=== PATIENT | male | born 1965 | race Caucasian/White ===

== ENCOUNTER 2018-03-23 15:26 | Inpatient (IN) | payer OTHER, SELFPAY ==
[2018-03-23 15:27] VITALS: BMI 27.3
[2018-03-23 15:39] VITALS: O2SAT 99
[2018-03-23 16:42] LABS: BASO # 0.1 K/uL (0.0-0.2); BASO % 0.7 % (0.0-2.0); EOS # 0.1 K/uL (0.0-0.7); EOS % 1.3 % (0.0-4.0); HEMOGLOBIN 16.4 g/dL (12.0-18.0); LYMPH # 1.8 K/uL (1.0-4.3); LYMPH % 17.2 % (20.0-40.0); MEAN CELL VOLUME 88.1 fl (80.0-94.0); MEAN CORPUSCULAR HEMOGLOBIN 29.8 pg (27.0-31.0); MEAN CORPUSCULAR HGB CONC 33.8 g/dL (33.0-37.0); MEAN PLATELET VOLUME 8.8 fl (7.2-11.7); MONO # 0.8 K/uL (0.0-0.8); MONO % 8.1 % (0.0-10.0); NEUT # 7.5 K/uL (1.8-7.0); NEUT % 72.7 % (50.0-75.0); NRBC % 0.1 % (0.0-0.0); RBC 5.51 Mil/uL (4.40-5.90); RED CELL DISTRIBUTION WIDTH 13.5 % (11.5-14.5); WHITE BLOOD COUNT 10.3 K/uL (4.8-10.8)
[2018-03-23 16:43] LABS: URINE BILIRUBIN NEGATIVE (NEGATIVE); URINE BLOOD NEGATIVE (NEGATIVE); URINE CLARITY CLEAR (Clear); URINE COLOR YELLOW (YELLOW); URINE GLUCOSE (UA) NEG (Normal); URINE LEUKOCYTE ESTERASE NEG Leu/uL (Negative); URINE PROTEIN NEGATIVE (NEGATIVE)
[2018-03-23 16:50] LABS: ALB/GLOB RATIO 1.4 (1.0-2.1); ALBUMIN 4.3 g/dL (3.5-5.0); ALT/SGPT 37 U/L (21-72); AST/SGOT 19 U/L (17-59); BLOOD UREA NITROGEN 15 mg/dl (9-20); CALCIUM 9.3 mg/dL (8.4-10.2); GFR AFRICAN-AMERICAN > 60; GFR NON-AFRICAN AMERICAN > 60
[2018-03-23 17:00] LABS: BARBITURATES, UR NEGATIVE (NEGATIVE); BENZODIAZEPINES, UR NEGATIVE (NEGATIVE); OPIATES, UR NEGATIVE (NEGATIVE); PHENCYCLIDINE, UR NEGATIVE (NEGATIVE)
--- NOTE | 2018-03-23 17:37 | RAD ---
PROCEDURE: CHEST RADIOGRAPH, 1 VIEW HISTORY: psych eval COMPARISON: None available. FINDINGS: LUNGS: The lungs are well inflated. There is mild pulmonary venous congestion. No focal consolidation. PLEURA: No pneumothorax or pleural fluid seen. CARDIOVASCULAR: Normal. OSSEOUS STRUCTURES: No significant abnormalities. VISUALIZED UPPER ABDOMEN: Normal. OTHER FINDINGS: None. IMPRESSION: No active pulmonary disease.
--- NOTE | 2018-03-23 17:49 | ED PDOC ---
HPI: Psych/Substance Abuse Time Seen by Provider: 03/23/18 15:45 Chief Complaint (Nursing): Psychiatric Evaluation Chief Complaint (Provider): Psychiatric Evaluation History/Exam Limitations: no limitations Onset/Duration Of Symptoms: Other (3 weeks) Current Symptoms Are (Timing): Still Present Associated Symptoms: Depression Additional Complaint(s): 52 year old male presents to the ED for psychiatric evaluation for depression that began 3 weeks ago. Patient reports the following associated symptoms of not eating or sleeping and states "FBI is calling him". Other psychiatric symptoms: (+) paranoid thoughts, (+) hallucinations, (-) suicidal ideation, (-) homicidal ideation. Otherwise: (-) trauma, (-) fever, (-)headache, (-) dyspnea, (-) vomiting, (-) substance abuse, (-) patient intent of initiating a suicide attempt, (-) plan. Past Medical History Reviewed: Historical Data, Nursing Documentation, Vital Signs Vital Signs: Last Vital Signs Temp 98.4 F 03/23/18 15:36 Pulse 84 03/23/18 15:36 Resp 18 03/23/18 15:36 BP 165/93 H 03/23/18 15:36 Pulse Ox 99 03/23/18 15:36 - Medical History PMH: Anxiety, Asthma, Depression, HTN Denies: Chronic Kidney Disease - Family History Family History: States: Unknown Family Hx - Social History Current smoker - smoking cessation education provided: No Alcohol: Occasional Drugs: Denies - Immunization History Hx Tetanus Toxoid Vaccination: No Hx Influenza Vaccination: No Hx Pneumococcal Vaccination: No - Home Medications Home Medications: Ambulatory Orders Medication Instructions Recorded Albuterol 0.083% [Albuterol 0.083% 2.5 mg IH Q6 PRN #20 neb 04/07/17 Inhal [place] (2.5 mg/3 ml) UD] - Allergies Allergies/Adverse Reactions: Allergies Allergy/AdvReac Type Severity Reaction Status Date / Time No Known Allergies Allergy Verified 04/07/17 08:02 Review of Systems ROS Statement: Except As Marked, All Systems Reviewed And Found Negative Constitutional: Negative for: Fever, Other (trauma) Respiratory: Negative for: Other (difficulty breathing) Gastrointestinal: Negative for: Vomiting Neurological: Positive for: Other (paranoid thoughts; hallucinations). Negative for: Headache Psych: Negative for: Suicidal ideation (homicidal ideation) Physical Exam - Physical Exam Comments: GENERAL APPEARANCE: Patient is awake, alert, oriented x 3, in no acute distress. SKIN: Warm, dry; (-) cyanosis HEAD: (-) scalp swelling, (-) scalp tenderness. EYES: (-) conjunctival pallor, (-) scleral icterus, (-) nystagmus. ENMT: Mucous membranes moist. Airway patent: (-) stridor. NECK: (-) tenderness, (-) stiffness, (-) lymphadenopathy. CHEST AND RESPIRATORY: (-) rales, (-) rhonchi, (-) wheezes; breath sounds equal. ABDOMEN: Soft, (-) distention, (-) tenderness, (-) guarding. NEURO AND PSYCH: Mental status as above. Affect: Calm and cooperative. operation manager: Intact. Pupils equal and reactive; EOMI; (-) facial asymmetry; tongue and uvula midline. Strength symmetric. - Laboratory Results Result Diagrams: 03/23/18 16:20 03/23/18 16:20 - ECG O2 Sat by Pulse Oximetry: 99 (RA) Pulse Ox Interpretation: Normal Medical Decision Making Medical Decision Making: Time: 1616 Initial Plan: --EKG --Alcohol serum --CMP --Drug screen --Crisis evaluation --CBC w/ differential --Chest one view --Urinalysis --Reevaluation Time: 1734 PROCEDURE: CHEST RADIOGRAPH, 1 VIEW FINDINGS: LUNGS: The lungs are well inflated. There is mild pulmonary venous congestion. No focal consolidation. PLEURA: No pneumothorax or pleural fluid seen. CARDIOVASCULAR: Normal. OSSEOUS STRUCTURES: No significant abnormalities. VISUALIZED UPPER ABDOMEN: Normal. OTHER FINDINGS: None. IMPRESSION: No active pulmonary disease. EKG: NSR at 76 bpm, (-) acute ST changes, as read by REDDY. Labs reviewed and they are noted to be within normal limits. Patient is medically cleared for crisis evaluation. Patient was seen and evaluated by crisis. After crisis evaluation, disposition was made for further inpatient treatment as per Dr. Ruiz for depression and hallucinations. Patient and family is agreeable with plan and disposition. On re-evaluation, patient laying in bed comfortably in no acute distress. Scribe Attestation: Documented by Tiffany Jiménez, acting as a scribe for Anita Olsen PA-C Provider Scribe Attestation: All medical record entries made by the Scribe were at my direction and personally dictated by me. I have reviewed the chart and agree that the record accurately reflects my personal performance of the history, physical exam, medical decision making, and the department course for this patient. I have also personally directed, reviewed, and agree with the discharge instructions and disposition. Disposition - Clinical Impression Clinical Impression: Depression, Hallucination - Patient ED Disposition Is Patient to be Admitted: Yes Counseled Patient/Family Regarding: Studies Performed, Diagnosis - Disposition Disposition Time: 18:00 Condition: STABLE Forms: qualifyor ([employer]) - PA / MECHANICAL HANDYMAN / Resident Statement / has reviewed & agrees with the documentation as recorded.
[2018-03-23] MEDS ORDERED: Magnesium Hydroxide Susp 30 ml UD PO PRN (20:50)
[2018-03-23] MEDS ORDERED: DiphenhydrAMINE 50 mg/ml Inj IM PRN (20:50)
[2018-03-23] MEDS ORDERED: Alum-Mag Hydrox-Simethicone Susp (30 mL) PO PRN (20:50)
[2018-03-23] MEDS ORDERED: Albuterol 0.083% Inhal Sol (2.5 mg/3 mL) UD IH PRN (21:10)
--- NOTE | 2018-03-23 21:52 | PCM.BM ---
<AlievenusRaghavendraabigail P - Last Filed: 03/23/18 21:51> Treatment Plan Problems - Problems identified on initial assessmt Hopelessness/Helplessness Date Initiated: 03/23/18 Time Initiated: 21:51 Assessment reference: NA Status: Active Altered Sleep Patterns Date Initiated: 03/23/18 Time Initiated: 21:51 Assessment reference: NA Status: Active Treatment assets and liabiliti Patient Assests: physically healthy, good support system, negotiates basic needs , cognitively intact Patient Liabilities: relationship conflicts, language/speech - Milieu Protocol Maintain good personal hygiene: daily Encourage regular showers, daily Remind patient to perform daily oral care, daily Assist patient to perform ADL's Conduct patient checks and document Observation sheet: Q15 minutes Maintain personal safety: every shift Educate patient to report safety concerns to staff, every shift Monitor environment for contraband/sharps Medication safety: Monitor for expected outcome, potential side effects: every shift, Assess barriers to learning: every shift, Assess readiness for medication education: every shift <EstelaVictorina dorman - Last Filed: 03/27/18 16:14> Treatment assets and liabiliti Patient Assests: adapts well, cooperative, insightful (limited ; noncompliant with aftercare), motivated, resourceful, ADL independent, physically healthy, good support system, negotiates basic needs, good past tx response, cognitively intact Patient Liabilities: language/speech (primarily surinamese speaking) Family Contact Family involvement: Family/SO is involved Family contact: Patient agrees to contact, Family has been contacted by patient , Telephone contact initiated by staff Family contact name: Dayana ([phone]) Family contacted how many times per week?: 2 Family contact comment: Gate Clerk placed call to patients /primary support to discuss progress on 3NP, discharge planning and address faily concerns. Voicemail for this number guevara snot been set up and card writer hand was unable to leave voicemail. Gate Clerk will attempt call at later time. - Goals for Treatment Patient goals for treatment: Patient to continue stabilization on 3NP through medication management and group/supportive therapy. Patient to be encouraged to attend groups regularly to promote self-awareness, reality testing, and improve insight, compliance, coping skills and self-esteem. Patient to be provided with referral for appropriate level of aftercare to reduce risk of future hospitalizations and ensure safety in the community. Discharge/Continuing Care - Education Needs Education Needs: Family Medication, Family Diagnosis/Disease Process, Family Coping Skills, Family Community resources, Family Aftercare Safety Plan, Patient Medication, Patient Diagnosis/Disease Process, Patient Coping Skills, Patient Community resources, Patient Aftercare Safety Plan - Discharge Discharge Criteria: Tolerates medication w/o severe side effects, Free of paranoid thoughts, Free of agitation, Normal sleep pattern, Ability to care for self, Reduction of target symptoms Discharge to:: Home, With Family - Treatment Team Participation Patient/Family/SO Statement: 03/27/18 16:18 Pt. remains internally preoccupied and suspicious on approach but to a lesser degree than upon admission. Pt. brighter and more visible on 3NP. Insight and focused are limited. Pt. continues to express paranoia and delusions pertaining to the FBI. Pt. mostly withdrawn and isolative on 3NP but to a lesser degree than upon admission. Pt. reported some improvement in symptoms of depression and anxiety since admission. Pt reports improvement in sleep. Discussed with Family/SO: No Was Patient/Family/SO present at Treatment Team Meeting: Yes <Audie Goetz - Last Filed: 03/28/18 14:09> - Diagnosis (1) Depression Status: Acute Interventions: 03/28/18 14:08 pharmacotherapy, psychotherapy
[2018-03-24 10:58] LABS: T4 9.65 ug/dl (5.5-11.0)
--- NOTE | 2018-03-24 12:49 | CP.PCM.CON ---
History of Present Illness - History of Present Illness History of Present Illness: This is a 52 yo male with a past medical history of asthma, hypertension, anxiety, and depression, who presented to the ED with worsening depression, paranoid thoughts, hallucinations. The patient is very withdrawn and does not respond to questioning. Has not been taking any medication for his hypertension. Review of Systems - Review of Systems Systems not reviewed;Unavailable: Uncooperative Past Patient History - Infectious Disease Hx of Infectious Diseases: None - Tetanus Immunizations Tetanus Immunization: Unknown - Past Medical History & Family History Past Medical History?: Yes - Past Social History Alcohol: Occasional Drugs: Denies - CARDIAC Hx Cardiac Disorders: No - PULMONARY Hx Respiratory Disorders: Yes Hx Asthma: Yes - NEUROLOGICAL Hx Neurological Disorder: No - HEENT Hx HEENT Problems: No - RENAL Hx Chronic Kidney Disease: No - ENDOCRINE/METABOLIC Hx Endocrine Disorders: No - HEMATOLOGICAL/ONCOLOGICAL Hx Blood Disorders: No - INTEGUMENTARY Hx Dermatological Problems: No - MUSCULOSKELETAL/RHEUMATOLOGICAL Hx Musculoskeletal Disorders: No Hx Falls: No - GASTROINTESTINAL Hx Gastrointestinal Disorders: No - GENITOURINARY/GYNECOLOGICAL Hx Genitourinary Disorders: No - PSYCHIATRIC Hx Substance Use: No - SURGICAL HISTORY Hx Surgeries: No - ANESTHESIA Hx Anesthesia: No Meds Allergies/Adverse Reactions: Allergies Allergy/AdvReac Type Severity Reaction Status Date / Time No Known Allergies Allergy Verified 04/07/17 08:02 - Medications Medications: Current Medications Acetaminophen (Tylenol 325mg Tab) 650 mg PO Q4 PRN PRN Reason: pain level 4-7 Al Hydrox/Mg Hydrox/Simethicone (Maalox Plus 30 Ml) 30 ml PO Q4 PRN PRN Reason: Dyspepsia Albuterol Sulfate (Albuterol 0.083% Inhal [place] (2.5 Mg/3 Ml) Ud) 2.5 mg IH RQ6 PRN PRN Reason: Wheezing Diphenhydramine HCl (Benadryl) 50 mg IM Q6 PRN PRN Reason: Extrapyramidal S/S Unable PO Diphenhydramine HCl (Benadryl) 50 mg PO Q6 PRN PRN Reason: Extrapyramidal Symptoms Diphenhydramine HCl (Benadryl) 50 mg PO HS PRN PRN Reason: Sleep Haloperidol (Haldol) 5 mg PO Q4 PRN PRN Reason: Agitation Haloperidol Lactate (Haldol) 5 mg IM Q4 PRN PRN Reason: Agitation, Unable to Take PO Hydrochlorothiazide (Hydrodiuril) 25 mg PO DAILY ROX Lorazepam (Ativan) 2 mg IM Q4 PRN PRN Reason: Anxiety/Agitation,Unable PO Lorazepam (Ativan) 2 mg PO Q4 PRN PRN Reason: Anxiety/Agitation Magnesium Hydroxide (Milk Of Magnesia) 30 ml PO HS PRN PRN Reason: Constipation Physical Exam - Additional Findings Additional findings: Physical exam: Constitutional- not responding to questioning due to psychiatric disorder, awake , alert Head- NCAT, PERRL Eye- PERRL, EOMI ENT- normal exam, MMM. Neck- normal inspection, supple, no JVD Respiratory- CTAB, no wheezes rales rhonchi Cardiovascular- RRR, +S1, +S2 no MRG GI/Abdominal- normal bowel sounds, soft, no mass, no hsm Skin- warm, dry Extremities Exam- normal capillary refill, normal inspection Neurological Exam- alert, awake, oriented Psych- depressed mood, flat affect Results - Vital Signs Recent Vital Signs: Last Vital Signs Temp 98.1 F 03/23/18 20:48 Pulse 74 03/23/18 21:22 Resp 18 03/23/18 21:22 BP 138/75 03/23/18 20:48 Pulse Ox 99 03/23/18 20:48 - Labs Result Diagrams: 03/23/18 16:20 03/23/18 16:20 Labs: Laboratory Results - last 24 hr 03/23/18 03/23/18 03/23/18 16:20 16:20 16:20 WBC 10.3 RBC 5.51 Hgb 16.4 Hct 48.6 MCV 88.1 MCH 29.8 MCHC 33.8 RDW 13.5 Plt Count 252 MPV 8.8 Neut % (Auto) 72.7 Lymph % (Auto) 17.2 L [place] % (Auto) 8.1 Eos % (Auto) 1.3 Baso % (Auto) 0.7 Neut # (Auto) 7.5 H Lymph # (Auto) 1.8 [place] # (Auto) 0.8 Eos # (Auto) 0.1 Baso # (Auto) 0.1 Sodium 142 Potassium 3.8 Chloride 98 Carbon Dioxide 25 Anion Gap 23 H BUN 15 Creatinine 0.8 Est GFR ( Amer) > 60 Est GFR (Non-Af Amer) > 60 Random Glucose 113 H Calcium 9.3 Total Bilirubin 0.5 AST 19 ALT 37 Alkaline Phosphatase 67 Total Protein 7.4 Albumin 4.3 Globulin 3.1 Albumin/Globulin Ratio 1.4 Triglycerides Cholesterol LDL Cholesterol Direct HDL Cholesterol Thyroxine (T4) TSH 3rd Generation Urine Color Urine Clarity Urine pH Ur Specific [place] Urine Protein Urine Glucose (UA) Urine Ketones Urine Blood Urine Nitrate Urine Bilirubin Urine Urobilinogen Ur Leukocyte Esterase Urine RBC (Auto) Urine Microscopic WBC Urine Opiates Screen Negative Urine Methadone Screen Negative Ur Barbiturates Screen Negative Ur Phencyclidine Scrn Negative Ur Amphetamines Screen Negative U Benzodiazepines Scrn Negative U Oth Cocaine Metabols Negative U Cannabinoids Screen Negative Alcohol, Quantitative < 10 03/23/18 03/24/18 16:20 09:40 WBC RBC Hgb Hct MCV MCH MCHC RDW Plt Count MPV Neut % (Auto) Lymph % (Auto) [place] % (Auto) Eos % (Auto) Baso % (Auto) Neut # (Auto) Lymph # (Auto) [place] # (Auto) Eos # (Auto) Baso # (Auto) Sodium Potassium Chloride Carbon Dioxide Anion Gap BUN Creatinine Est GFR ( Amer) Est GFR (Non-Af Amer) Random Glucose Calcium Total Bilirubin AST ALT Alkaline Phosphatase Total Protein Albumin Globulin Albumin/Globulin Ratio Triglycerides 137 Cholesterol 212 H LDL Cholesterol Direct 140 H HDL Cholesterol 46 Thyroxine (T4) 9.65 TSH 3rd Generation 0.46 Urine Color Yellow Urine Clarity Clear Urine pH 6.0 Ur Specific [place] 1.015 Urine Protein Negative Urine Glucose (UA) Neg Urine Ketones Negative Urine Blood Negative Urine Nitrate Negative Urine Bilirubin Negative Urine Urobilinogen 2.0 Ur Leukocyte Esterase Neg Urine RBC (Auto) 3 Urine Microscopic WBC < 1 Urine Opiates Screen Urine Methadone Screen Ur Barbiturates Screen Ur Phencyclidine Scrn Ur Amphetamines Screen U Benzodiazepines Scrn U Oth Cocaine Metabols U Cannabinoids Screen Alcohol, Quantitative Assessment & Plan - Assessment and Plan (Free Text) Plan: ASSESSMENT/PLAN 1) Essential hypertension, uncontrolled - no seen antihypertensive medication in the past in the chart - Start HCTZ 25 mg po daily and titrate as necessary - also may be exacerbated by anxiety 2) Asthma- chronic, stable - Continue Ventolin inhaler PRN - well controlled 3) Anxiety/depression - Management as per psychiatry
--- NOTE | 2018-03-24 14:50 | PCM.PSYCH ---
Initial Psychiatric Evaluation - Initial Psychiatric Evaluation Chief Complaint (in patient's own words): came to emergency room with for worsening depression and anxiety with paranoia Patient's Reaction to Hospitalization: pt signed in voluntarily History of Present Illness and Precipitating Events: several weeks ago increasing depression anxiety paranoia after reportedly receiving call from fbi related to reported call pt made to a telephone hotline for exotic women. after reported call pt became increasingly worried not want to leave house thinking people were following him, feeling down, not wantting to eat. reports that expresses concern that although does not have patience suicidal plan is concerned about his worsening mood as was reported to er staff by per report. pt was previously treated at [facility] for depression and anxiety. reportedly was given medications, felt better and stopped on his own after a period of working and having fears of "becoming addicted to medications". Current Medications: Active Medications Generic Name Dose Route Start Last Admin Trade Name Freq PRN Reason Stop Dose Admin Acetaminophen 650 mg 03/23/18 20:50 Tylenol 325mg Tab PO Q4 PRN pain level 4-7 Al Hydrox/Mg Hydrox/Simethicone 30 ml 03/23/18 20:50 Maalox Plus 30 Ml PO Q4 PRN Dyspepsia Albuterol Sulfate 2.5 mg 03/23/18 21:10 Albuterol 0.083% Inhal [place] (2.5 Mg/3 Ml) Ud IH RQ6 PRN Wheezing Diphenhydramine HCl 50 mg 03/23/18 20:50 Benadryl IM Q6 PRN Extrapyramidal S/S Unable PO Diphenhydramine HCl 50 mg 03/23/18 20:50 Benadryl PO Q6 PRN Extrapyramidal Symptoms Diphenhydramine HCl 50 mg 03/23/18 20:54 Benadryl PO HS PRN Sleep Escitalopram Oxalate 5 mg 03/24/18 14:45 Lexapro PO DAILY ROX Haloperidol 5 mg 03/23/18 20:50 Haldol PO Q4 PRN Agitation Haloperidol Lactate 5 mg 03/23/18 20:50 Haldol IM Q4 PRN Agitation, Unable to Take PO Hydrochlorothiazide 25 mg 03/24/18 12:30 Hydrodiuril PO DAILY ROX Lorazepam 2 mg 03/23/18 20:50 Ativan IM Q4 PRN Anxiety/Agitation,Unable PO Lorazepam 2 mg 03/23/18 20:50 Ativan PO Q4 PRN Anxiety/Agitation Magnesium Hydroxide 30 ml 03/23/18 20:50 Milk Of Magnesia PO HS PRN Constipation Quetiapine Fumarate 25 mg 03/24/18 22:00 Seroquel PO HS ROX Past Psychiatric History - Past Psychiatric History Prior Professional Help: opd [facility] depression anxietty Prior Psychiatric Treatment: stopped on his own without follow up History of Abuse: denies History of ETOH/Drug Use: denies History of Family Illness: denies Pertinent Medical Hx (Current Medical&Sleep Prob, Allergies): Allergies Allergy/AdvReac Type Severity Reaction Status Date / Time No Known Allergies Allergy Verified 04/07/17 08:02 Albuterol 0.083% [Albuterol 0.083% Inhal [place] (2.5 mg/3 ml) UD] 2.5 mg IH Q6 PRN #20 neb 04/07/17 Review of Systems - Psychiatric Psychiatric: Abnormal Sleep Pattern, Anhedonia, Change in Appetite, Hopelessness , Paranoia Mental Status Examination - Personal Presentation Personal Presentation: Looks older than stated age - Affect Affect: Constricted, Depressed - Motor Activity Motor Activity: Calm, Psychomotor Retardation - Reliability in Providing Information Reliability in Providing Information: Fair - Speech Speech: Organized - Mood Mood: Depressed - Formal Thought Process Formal Thought Process: Paranoia - Obsessions/Compulsions Obsessions: No Compulsions: No - Cognitive Functions Orientation: Person, Place, Situation, Time Sensorium: Alert Attention/Concentration: Attentive Judgement: Imparied, as evidence by: Lack of insight into illness - Risk Risk: Suicidal, Diminished functioning - Strength & Assets Inventory Strength & Assets Inventory: Family support (hx of non adherence), Cooperative DSM 5 DX - DSM 5 DSM 5 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
--- NOTE | 2018-03-25 09:04 | CARD ---
APPROVED REPORT EKG Measurement Heart [id number] <Conclusion> Normal sinus rhythm Normal ECG
[2018-03-25] MEDS ORDERED: Risperidone M tab 0.5MG PO STA (12:25)
--- NOTE | 2018-03-25 13:28 | PCM.PYCHPN ---
Psychiatric Progress Note - Psychiatric Progress Note Patient seen today, length of contact: pt evaluated discussed with team chart reviewed Patient Chief Complaint: I am worried they are following me, I am afraid and scared Problems Identified/Issues Discussed: pt evaluated with translation pt seen in bed , dressed in hospital gown ,psychomotor retardation,neglecting personal hygiene , pt reported feeling depressed and anxious, , discussed with pt possible provoking factors for anxiety stated that he continues to worry about the FBI following him, pt continues to be guarded , paranoid , reported poor sleep with early insomnia , poor appetite, pt presenting with paucity of thought, internal preoccupation, he denied command hallucinations denied suicidal or homicidal ideations DSM 5 Symptoms Update: major depression recurrent severe with psychotic features Medication Change: Yes (start remeron and risperidone) Medical Record Reviewed: Yes Mental Status Examination - Cognitive Function Orientation: Person, Place, Situation Memory: Impaired, Recent Attention: Poor Concentration: Poor Association: WNL Fund of Knowledge: Poor Decription of patient's judgement and insights: fair insight and judgment - Mood Mood: Depressed, Anxious - Affect Affect: Constricted, Depressed - Speech Speech: Soft - Formal Thought Process Formal Thought Process: Delusions, Paranoia Psychotic Thoughts and Behaviors: delusions of persecution, internal preoccupation , denied command hallucinations - Suicidal Ideation Suicidal Ideation: No - Homicidal Ideation Homicidal Ideation: No Goal/Treatment Plan - Goal/Treatment Plan Progress Toward Problem(s) and Goals/Treatment Plan: discontinue seroquel and lexapro start risperidone 0.5mg bid and uptitrate start remeron 7.5 mg qhs and uptitrate monitor for psychopharmacological effects and side effect profile Estimated Date of D/C: 03/29/18
[2018-03-25] MEDS ORDERED: Risperidone M tab 0.5MG PO SCH (22:00)
[2018-03-26] MEDS: Risperidone M tab 0.5MG PO SCH (09:21)
--- NOTE | 2018-03-26 13:38 | PCM.PYCHPN ---
Psychiatric Progress Note - Psychiatric Progress Note Patient seen today, length of contact: pt evaluated discussed with team chart reviewed Patient Chief Complaint: I know the police is trying to get me Problems Identified/Issues Discussed: pt evaluated with translation pt seen in bed , continues to be isolative, paranoid , continues to have delusions of persecution believing that police is after him , dressed in hospital gown not attending to personal hygiene ,psychomotor retardation, pt reported feeling less depressed and less anxious, , improved sleep about 5 hours and improved appetite, he is presenting with paucity of thought, under productive speech, internal preoccupation, he denied command hallucinations denied suicidal or homicidal ideations compliant with medication , no reported side effects of medications, discussed with pt increasing dose of risperidone and remeron encouraged pt to attend groups DSM 5 Symptoms Update: major depression recurrent severe with psychotic features Medication Change: Yes (increase remeron and risperidone) Medical Record Reviewed: Yes Mental Status Examination - Cognitive Function Orientation: Person, Place, Situation Memory: Impaired, Recent Attention: Poor Concentration: Poor Association: WNL Fund of Knowledge: Poor Decription of patient's judgement and insights: fair insight and judgment - Mood Mood: Depressed, Anxious - Affect Affect: Constricted, Depressed - Speech Speech: Soft - Formal Thought Process Formal Thought Process: Delusions, Paranoia Psychotic Thoughts and Behaviors: delusions of persecution, internal preoccupation , denied command hallucinations - Suicidal Ideation Suicidal Ideation: No - Homicidal Ideation Homicidal Ideation: No Goal/Treatment Plan - Goal/Treatment Plan Need for Continued Stay: Severe depression anxiety, Discharge may exacerbated symptoms Progress Toward Problem(s) and Goals/Treatment Plan: increase risperidone 0.5mg daily and 1mg qhs increase remeron 15 mg qhs monitor for psychopharmacological effects and side effect profile Estimated Date of D/C: 03/29/18
[2018-03-26] MEDS ORDERED: Risperidone M tab 1 MG PO SCH (22:00)
[2018-03-27] MEDS: Risperidone M tab 0.5MG PO SCH (09:00)
--- NOTE | 2018-03-27 13:21 | PCM.PYCHPN ---
Psychiatric Progress Note - Psychiatric Progress Note Patient seen today, length of contact: pt evaluated discussed with team chart reviewed Patient Chief Complaint: I still feel somebody on the outside is there to get me Problems Identified/Issues Discussed: pt seen with treatment team , continues to be in hospital gown, reporting sleep now is about 5 hours a night , some improvement in appetite , pt continues to verbalize delusions of persecution , continues to feel targeted by police for the phone calls he made, discussed with pt increasing dose of risperidone , pt reported dizziness in the morning possible postural hypotension, advised pt to avoid sudden change in posture , also will shift medications tonight dose to help with insomnia pt continues to be isolative , needs a lot of encouragement to be out of his room, neglecting his personal hygiene speech is more productive , no noted paucity, denied perceptual disturbances, denied any suicidal or homicidal ideations DSM 5 Symptoms Update: major depression recurrent severe with psychotic features Medication Change: Yes (increase risperidone) Medical Record Reviewed: Yes Mental Status Examination - Cognitive Function Orientation: Person, Place, Situation Memory: Impaired, Recent Attention: WNL Concentration: WNL Association: WNL Fund of Knowledge: WNL Decription of patient's judgement and insights: fair insight and judgment - Mood Mood: Depressed, Anxious - Affect Affect: Constricted, Depressed - Speech Speech: Soft - Formal Thought Process Formal Thought Process: Delusions, Paranoia Psychotic Thoughts and Behaviors: delusions of persecution, , denied command hallucinations - Suicidal Ideation Suicidal Ideation: No - Homicidal Ideation Homicidal Ideation: No Goal/Treatment Plan - Goal/Treatment Plan Need for Continued Stay: Severe depression anxiety, Discharge may exacerbated symptoms Progress Toward Problem(s) and Goals/Treatment Plan: increase risperidone 2mg qhs remeron 15 mg qhs monitor for psychopharmacological effects and side effect profile Estimated Date of D/C: 04/01/18
[2018-03-27] MEDS ORDERED: Risperidone M TAB 2 MG PO SCH (22:00)
--- NOTE | 2018-03-28 14:44 | PCM.PYCHPN ---
Psychiatric Progress Note - Psychiatric Progress Note Patient seen today, length of contact: pt evaluated discussed with team chart reviewed Patient Chief Complaint: I still feel the police is out to get me for what I did Problems Identified/Issues Discussed: pt evaluated with translation pt on evaluation reported improved sleep about 6to 7hours, stated feeling less depressed. pt however continues to have delusions of persecution, afraid that the police will be after him on the outside, discussed with pt that this overvalued idea probably stems from feeling guilty about the episode of infidelity he had towards his through a phne call, pt paused and then agreed discussed with pt increasing the dose of risperidone to 2.5mg qhs pt reported that after changing all medications to bed time he has no dizziness during the morning hours denied perceptual disturbances, denied any current suicidal or homicidal ideations DSM 5 Symptoms Update: major depression recurrent severe with psychotic features Medication Change: Yes (increase risperidone) Medical Record Reviewed: Yes Mental Status Examination - Cognitive Function Orientation: Person, Place, Situation Memory: Impaired, Recent Attention: WNL Concentration: WNL Association: WNL Fund of Knowledge: WN Decription of patient's judgement and insights: fair insight and judgment - Mood Mood: Depressed, Anxious - Affect Affect: Constricted, Depressed - Speech Speech: Soft - Formal Thought Process Formal Thought Process: Delusions, Paranoia Psychotic Thoughts and Behaviors: delusions of persecution, , denied command hallucinations - Suicidal Ideation Suicidal Ideation: No - Homicidal Ideation Homicidal Ideation: No Goal/Treatment Plan - Goal/Treatment Plan Need for Continued Stay: Severe depression anxiety, Discharge may exacerbated symptoms Progress Toward Problem(s) and Goals/Treatment Plan: increase risperidone 2.5mg qhs remeron 15 mg qhs monitor for psychopharmacological effects and side effect profile Estimated Date of D/C: 04/01/18
[2018-03-28] MEDS ORDERED: Risperidone M TAB 2 MG PO SCH (22:00)
[2018-03-28] MEDS ORDERED: Risperidone M tab 0.5MG PO SCH (22:00)
[2018-03-28] MEDS ORDERED: Risperidone M tab 1 MG PO SCH (22:00)
--- NOTE | 2018-03-29 15:09 | PCM.PYCHPN ---
Psychiatric Progress Note - Psychiatric Progress Note Patient seen today, length of contact: pt evaluated discussed with team chart reviewed Patient Chief Complaint: I am worried to be followed on the outside Problems Identified/Issues Discussed: pt evaluated with translation pt on evaluation reported improved sleep about 6to 7hours, stated feeling less depressed, pt is less isolative in his room, more visible on the unit pt however continues to have delusions of persecution, afraid that the police will be after him on the outside, discussed with pt increasing the dose of risperidone to 3mg qhs pt reported that after changing all medications to bed time he has no dizziness during the morning hours denied perceptual disturbances, denied any current suicidal or homicidal ideation DSM 5 Symptoms Update: major depression with psychotic features Medication Change: Yes (increase risperidone) Medical Record Reviewed: Yes Mental Status Examination - Cognitive Function Orientation: Person, Place, Situation Memory: Impaired, Recent Attention: WNL Concentration: WNL Association: WNL Fund of Knowledge: [facility] Decription of patient's judgement and insights: fair insight and judgment - Mood Mood: Depressed, Anxious - Affect Affect: Constricted, Depressed - Speech Speech: Soft - Formal Thought Process Formal Thought Process: Delusions, Paranoia Psychotic Thoughts and Behaviors: delusions of persecution, , denied command hallucinations - Suicidal Ideation Suicidal Ideation: No - Homicidal Ideation Homicidal Ideation: No Goal/Treatment Plan - Goal/Treatment Plan Need for Continued Stay: Severe depression anxiety, Discharge may exacerbated symptoms Progress Toward Problem(s) and Goals/Treatment Plan: increase risperidone 3mg qhs remeron 15 mg qhs monitor for psychopharmacological effects and side effect profile Estimated Date of D/C: 04/01/18
[2018-03-29] MEDS: Risperidone M tab 1 MG PO SCH (21:27)
--- NOTE | 2018-03-30 10:53 | PCM.PYCHPN ---
Psychiatric Progress Note - Psychiatric Progress Note Patient seen today, length of contact: Patient evaluated, case discussed with team, chart reviewed Patient Chief Complaint: "I'm anxious." Problems Identified/Issues Discussed: Patient reports that he continues to feel anxious and depressed. He denies acute AH/VH/paranoia or delusions that he is being persecuted by the police. He reports that the medications make him feel sleepy at night, but report that this helps him sleep. No other adverse effects to medications reported. He is more goal oriented towards being discharged and returning home to his family. Medication Change: No Medical Record Reviewed: Yes Consults ordered or reviewed: Medicine consult Mental Status Examination - Cognitive Function Orientation: Person, Place, Situation, Time Memory: Impaired, Recent Attention: WNL Concentration: WNL Association: WNL Fund of Knowledge: WN Decription of patient's judgement and insights: Improving I/J - Mood Mood: Depressed, Anxious - Affect Affect: Constricted, Depressed - Speech Speech: Soft - Formal Thought Process Formal Thought Process: No Impairment (Denies acute paranoia/delusions) - Suicidal Ideation Suicidal Ideation: No - Homicidal Ideation Homicidal Ideation: No Goal/Treatment Plan - Goal/Treatment Plan Need for Continued Stay: Severe depression anxiety, Discharge may exacerbated symptoms Progress Toward Problem(s) and Goals/Treatment Plan: Major Depressive Disorder w/ Psychotic Features -Continue Remeron 15 mg PO HS and Risperdal 3 mg PO HS -Individual and group therapy -Disposition planning -Medicine consult -Psychoeducation Estimated Date of D/C: 04/01/18
[2018-03-30 16:37] VITALS: RESP 18
[2018-03-30] MEDS: Risperidone M tab 1 MG PO SCH (21:02)
--- NOTE | 2018-03-31 10:26 | PCM.PYCHPN ---
Psychiatric Progress Note - Psychiatric Progress Note Patient seen today, length of contact: Patient evaluated, case discussed with team, chart reviewed Patient Chief Complaint: "I'm anxious." Problems Identified/Issues Discussed: Patient reports that his mood is improving. He is goal oriented towards being discharged. He has some mild paranoia about the police. No AH/VH/SI/HI. Medication Change: No Medical Record Reviewed: Yes Consults ordered or reviewed: Medicine consult Mental Status Examination - Cognitive Function Orientation: Person, Place, Situation, Time Memory: Intact Attention: WNL Concentration: WNL Association: WNL Fund of Knowledge: [facility] Decription of patient's judgement and insights: Improving I/J - Mood Mood: Anxious - Affect Affect: Constricted - Speech Speech: Soft - Formal Thought Process Formal Thought Process: Paranoia Psychotic Thoughts and Behaviors: +Mild paranoia - Suicidal Ideation Suicidal Ideation: No - Homicidal Ideation Homicidal Ideation: No Goal/Treatment Plan - Goal/Treatment Plan Need for Continued Stay: Severe depression anxiety, Discharge may exacerbated symptoms Progress Toward Problem(s) and Goals/Treatment Plan: Major Depressive Disorder w/ Psychotic Features -Continue Remeron 15 mg PO HS and Risperdal 3 mg PO HS -Individual and group therapy -Disposition planning -Medicine consult -Psychoeducation Estimated Date of D/C: 04/02/18
[2018-03-31] MEDS: Risperidone M tab 1 MG PO SCH (21:08)
[2018-04-01 16:42] VITALS: TEMP 97
--- NOTE | 2018-04-01 16:50 | PCM.PYCHPN ---
Psychiatric Progress Note - Psychiatric Progress Note Patient seen today, length of contact: Patient evaluated, case discussed with team, chart reviewed Patient Chief Complaint: I am worried to be followed on the outside Problems Identified/Issues Discussed: pt evaluated with translation pt on evaluation reported improved mood, presenting with brighter affect, kempt , more interactive with other patients and staff, less paranoid clearing off of the persecutory delusions, improved sleep and appetite , no reported side effects of medications denied perceptual disturbances, denied any current suicidal or homicidal ideation DSM 5 Symptoms Update: major depression recurrent severe with psychotic features Medication Change: No Medical Record Reviewed: Yes Mental Status Examination - Cognitive Function Orientation: Person, Place, Situation, Time Memory: Intact Attention: WNL Concentration: WNL Association: WNL Fund of Knowledge: WNL - Mood Mood: Anxious - Affect Affect: Constricted - Speech Speech: Soft - Formal Thought Process Formal Thought Process: Paranoia Psychotic Thoughts and Behaviors: pt less paranoid, denied any current perceptual disturbances - Suicidal Ideation Suicidal Ideation: No - Homicidal Ideation Homicidal Ideation: No Goal/Treatment Plan - Goal/Treatment Plan Need for Continued Stay: Severe depression anxiety, Discharge may exacerbated symptoms Progress Toward Problem(s) and Goals/Treatment Plan: risperidone 3mg qhs remeron 15 mg qhs monitor for psychopharmacological effects and side effect profile Estimated Date of D/C: 04/02/18
[2018-04-01] MEDS: Risperidone M tab 1 MG PO SCH (21:07)
[2018-04-02 09:14] VITALS: BP 108/60; PULSE 80
--- NOTE | 2018-04-02 12:26 | PCM.PYCHDC ---
Mental Status Examination - Mental Status Examination Orientation: Person, Place, Situation Memory: Intact Mood: Neutral Affect: Broad Speech: Appropriate Attention: WNL Concentration: WNL Association: WNL Fund of Knowledge: WNL Formal Thought Process: No Impairment Description of patient's judgement and insight: fair insight and judgment Psychotic Thoughts and Behaviors: pton discharge denied any current psychotic symptoms, non elicited Suicidal Ideation: No Current Homicidal Ideation?: No Discharge Summary - Discharge Note Reason for Hospitalization: several weeks ago increasing depression anxiety paranoia after reportedly receiving call from [employer] related to reported call pt made to a telephone hotline for exotic women. after reported call pt became increasingly worried not want to leave house thinking people were following him, feeling down, not wantting to eat. reports that expresses concern that although does not have patience suicidal plan is concerned about his worsening mood as was reported to er staff by per report. pt was previously [facility] at [facility] depression and anxiety. reportedly was given medications, felt better and stopped on his own after a period of working and having fears of "becoming addicted to medications". Consultations:: List each consultation separately and include: 1. Reason for request. 2. Findings. 3. Follow-up Summary of Hospital Course include:: 1. Description of specific treatment plan utilized for patients during their course of treatmen. 2. Summarize the time- course for resolution of acute symptoms and/or regressed behaviors. 3. Describe issues identified and worked on during hospitalization. 4. Describe medication utilized. 5. Describe medical problems identified and treated. 6. Reassessment of suicide risk Summary of Hospital Course: pt on admission was started on risperidone , it was uptitrated to 3mg qhs also was started on remeron , it was uptitrated to 15mg qhs pt was initialy guarded paranoid, isolative, gradually pt presented with improved sleep, improved appetite, presented with less depressed mood and brighter affect with clearing off of the paranoid delusions CBT and supportive therapy provided, no reported side effects of medications on discharge pt mental status was stable, denied any suicidal or homicidal ideation, no psychotic symptoms elicited , - Diagnosis (1) Depression Status: Acute - Final Diagnosis (DSM 5) Condition upon Discharge: STABLE DSM 5: major depression recurrent severe with psychotic features Disposition: HOME/ ROUTINE Follow-up Treatment Plan: risperidone 3mg qhs remeron 15 mg qhs monitor for psychopharmacological effects and side effect profile Prescriptions/Medication Reconciliation: Mirtazapine [Remeron] 15 mg PO HS 30 Days #30 tab Risperidone [Risperdal M-TAB] 3 mg PO HS 30 Days #30 odt - Antipsychotic Medications Pt discharged on 2 or more routine antipsychotic medications: No
== END 2018-04-02 11:47 | disposition home or self-care (01) | DRG 430 ==
LOC: H.ER 15:26 → H.ERHOLD 18:40 → H.PSYCH 20:47
PROVIDERS: ADMIT Psychiatry & Neurology Psychiatry; ATTEND Psychiatry & Neurology Psychiatry
PROC: GZHZZZZ Group Psychotherapy (ICD-10-PCS; principal; 2018-03-23)
PROC: GZ58ZZZ Individual Psychotherapy, Cognitive-Behavioral (ICD-10-PCS; 2018-03-23)
DX: F33.3 Major depressive disorder, recurrent, severe with psychotic symptoms (principal); F41.8 Other specified anxiety disorders; I10 Essential (primary) hypertension; J45.909 Unspecified asthma, uncomplicated